=== PATIENT | female | born 1985 | race Caucasian/White ===

== ENCOUNTER 2019-08-07 08:15 | Outpatient (RCR) | payer BC | END 2019-08-24 07:46 | disposition home or self-care (01) | LOC: WSPT 08:15 | DX: M54.2 Cervicalgia (principal) ==

== ENCOUNTER 2021-05-20 11:28 | Outpatient (RCR) | payer BC | END 2021-06-20 | disposition home or self-care (01) | LOC: WSST | DX: R13.10 Dysphagia, unspecified (principal) ==

== ENCOUNTER → 2021-05-20 | Outpatient (CLI) | payer BC | LOC: COL.RAD 08:50 | DX: K59.00 Constipation, unspecified (principal); K21.9 Gastro-esophageal reflux disease without esophagitis ==

== ENCOUNTER → 2021-05-27 | Outpatient (CLI) | payer BC | LOC: COL.RAD 07:55 | DX: R13.10 Dysphagia, unspecified (principal); R11.0 Nausea; R10.84 Generalized abdominal pain; R14.0 Abdominal distension (gaseous) | CPT/HCPCS: A9541 ==